=== PATIENT | female | born 1985 | race Caucasian/White ===

== ENCOUNTER 2018-11-30 12:13 | Emergency (ER) | payer OTHER, BC ==
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
== END 2018-11-30 12:45 | disposition home or self-care (01) ==
LOC: VM.ED 12:13
DX: S13.4XXA Sprain of ligaments of cervical spine, initial encounter (principal); V49.50XA Passenger injured in collision with unspecified motor vehicles in traffic accident, initial encounter
CPT/HCPCS: 99283